=== PATIENT | male | born 1955 | race Caucasian/White ===

== ENCOUNTER 2024-08-04 00:09 | Emergency (ER) | payer MEDICARE, SELFPAY ==
[2024-08-04 00:15] VITALS: BP 136/77; PULSE 94; TEMP 36.6; O2SAT 95; BMI 34.1
--- NOTE | 2024-08-04 00:26 | XR_ITS ---
The [address] [address] Patient Name: JANNETH CARLSON MRN: [id number] date: 1955 Sex: M Assigned Patient Location: ER Current Patient Location: Accession/Order Number: [id number] Exam Date: 08/04/2024 00:54 Report Date: 08/04/2024 03:53 At the request of: JUSTIN STOLL Procedure: XR cervical spine 2-3V EXAM: XR cervical spine 2-3V HISTORY: Atraumatic pain COMPARISON: None. TECHNIQUE: Frontal, lateral, swimmer's, and open-mouth odontoid views of the cervical spine were obtained. FINDINGS: The cervical spine is well-imaged from the craniocervical junction to the C5-C6 disc space on the lateral view. No acute fracture or subluxation is seen. The vertebral body heights are preserved. The vertebral elements are in anatomic alignment. The disc spaces are preserved. The prevertebral soft tissues are unremarkable. There are degenerative changes including endplate osteophytes, uncovertebral hypertrophy, and degenerative facet arthropathy. Dental amalgam is noted. The imaged lung apices are clear. There is normal alignment of C1 on C2 on the open-mouth odontoid view. XR/XR cervical spine 2-3V IMPRESSION: 1. Degenerative changes of the cervical spine with no acute osseous abnormality seen. Electronically authenticated by: Teresa MALONEY Date: 08/04/2024 03:53
--- NOTE | 2024-08-04 00:27 | ED_ITS ---
HPI HPI - Neck Pain/Injury General Chief Complaint: Neck Pain/Injury Stated Complaint: neck pain Time Seen by Provider: 08/04/24 00:24 Source: patient Mode of arrival: walk-in Limitations: no limitations History of Present Illness HPI Narrative: 69-year-old male presents for neck pain. He woke up this way 2 days ago. There was not any trauma. It hurts more if he turns his head. No weakness or numbness in his arms or hands and no headache. He has never had neck issues previously. Related Data Home Medications ?Medication ?Instructions ?Recorded ?Confirmed levothyroxine 137 mcg tablet mcg 08/04/24 omeprazole 20 mg capsule,delayed mg 08/04/24 release Previous Rx's ?Medication ?Instructions ?Recorded methocarbamol 500 mg tablet 500 mg PO Q8H PRN pain #20 tabs 08/04/24 Allergies Allergy/AdvReac Type Severity Reaction Status Date / Time No Known Drug Allergies Allergy Verified 08/04/24 00:23 Opioid HPI Opioid Management Most Recent Opioid Data: Last DEC Pain Assessment 08/04/24 00:49 Review of Systems ROS Narrative A ten point review of systems is negative except as noted above. PFSH PFSH Social History Little interest or pleasure in doing things: not at all Feeling down, depressed, or hopeless: not at all Exam Narrative Exam Narrative: Nurses note and vital signs reviewed and patient is not hypoxic. General: The patient appears well and in no apparent distress. Patient is resting comfortably on cart. Skin: Warm, dry, no pallor noted. There is no rash noted. Head: Normocephalic, atraumatic; neck has no bruise or rash or swelling or masses. No palpable tenderness. Eye: Normal conjunctiva, no drainage Ears, Nose, Mouth, and Throat: oral mucosa is moist. Nares patent. Cardiovascular: Regular Rate and Rhythm Respiratory: Patient is in no distress, no accessory muscle use, lungs are clear to auscultation, no wheezing, rales or rhonchi Back: non-tender GI: Normal bowel sounds, no tenderness to palpation, no masses appreciated. No rebound, guarding, or rigidity noted. Musculoskeletal: The patient has no evidence of calf tenderness, no pitting edema, symmetrical pulses noted bilaterally Neurological: A&O, normal speech, upper and lower extremity strength intact and symmetric. Psychiatric: Cooperative Constitutional Vital Signs, click to edit/add: Last Vital Signs Temp 97.9 F 08/04/24 00:15 Pulse 94 H 08/04/24 00:15 Resp 18 08/04/24 00:15 BP 136/77 08/04/24 00:15 Pulse Ox 95 08/04/24 00:15 O2 Del Method Room Air 08/04/24 00:15 Course Vital Signs Vital signs: Vital Signs Temperature 97.9 F 08/04/24 00:15 Pulse Rate 94 H 08/04/24 00:15 Respiratory Rate 18 08/04/24 00:15 Blood Pressure 136/77 08/04/24 00:15 Pulse Oximetry 95 08/04/24 00:15 Oxygen Delivery Method Room Air 08/04/24 00:15 Temperature 97.9 F 08/04/24 00:15 Pulse Rate 94 H 08/04/24 00:15 Respiratory Rate 18 08/04/24 00:15 Blood Pressure 136/77 08/04/24 00:15 Pulse Oximetry 95 08/04/24 00:15 Oxygen Delivery Method Room Air 08/04/24 00:15 MDM - Neck Pain/Injury MDM Narrative Medical decision making narrative: The x-rays on my interpretation showed no acute findings. He seems to be feeling improved after being given IM Toradol and Norflex and is discharged home on methocarbamol. Findings are discussed with the patient. Differential Diagnosis Differential diagnosis: Likely disc disorder of cervical region, fracture of cervical spine without lesion of spinal cord, cervical radiculopathy and other (Torticollis) Imaging Data C-spine x-ray: My impression: No acute findings Discharge Plan Discharge Chief Complaint: Neck Pain/Injury Clinical Impression: Torticollis Patient Disposition: Home, Self-Care Time of Disposition Decision: 03:21 Condition: Good Mode of Transportation: Private Vehicle Prescriptions / Home Meds: New methocarbamol 500 mg tablet 500 mg PO Q8H PRN (Reason: pain) Qty: 20 0RF No Action levothyroxine 137 mcg tablet omeprazole 20 mg capsule,delayed release(DR/EC) Print Language: Malawian Instructions: Neck Pain (ED) Referrals: Blaze Capone MD [Primary Care Provider] - 1 week
[2024-08-04] MEDS: KETOROLAC TROMETHAMINE 60 MG/2 ML VIAL IM (00:49)
[2024-08-04] MEDS: ORPHENADRINE 60 MG/ 2 ML VIAL IM (00:49)
== END 2024-08-04 03:24 | disposition home or self-care (01) ==
PROVIDERS: Emergency Provider Emergency Medicine; PCP Family Medicine
DX: M43.6 Torticollis (principal)
CPT/HCPCS: 72040; 96372; 99284; J1885; J2360

== ENCOUNTER 2024-10-16 08:59 | Outpatient (OUT) | payer MEDICARE, SELFPAY ==
--- OUTSIDE RECORDS SUMMARY | 2024-10-16 09:19 | XMS_ITS | CCD ---
Author Organization [facility] Care Team Providers Care Helmet Hat Puncher Name Role Phone DR WILLIE HOBBS Attending Unavailable FABY, DR WILLIE Del Rosario Consulting Unavailable DR WILLIE HOBBS Primary Care Unavailable FABY, DR WILLIE Del Rosario Admitting Unavailable Willie Hobbs MD Primary Care Provider Medications Current Medications Medication Drug Class(es) Dates Sig (Normalized) Sig (Original) levothyroxine sodium 0.137 mg oral tablet (3 sources) l-Thyroxine Start: 10-06-2024 take 1 tablet by mouth once daily levothyroxine (Synthroid, Levoxyl) 137 MCG tablet Indications: Hypothyroidism, unspecified type (CMS/HCC) Take 1 tablet by mouth once daily 90 tablet 10/06/2024 Active omeprazole 20 mg delayed release oral capsule (3 sources) Proton Pump Inhibitor Start: 08-21-2024 take 1 capsule by mouth once daily omeprazole (PriLOSEC) [address] capsule Indications: Gastroesophageal reflux disease, unspecified whether esophagitis present Take 1 capsule by mouth once daily 90 capsule 08/21/2024 Active Problems Problem Classification Problem Date Documented Date Episodic/Chronic Esophageal disorders (2 sources) Gastroesophageal reflux disease without esophagitis; Translations: [Gastro-esophageal reflux disease without esophagitis] Onset: 10-13-2024 10-13-2024 Chronic Other aftercare (4 sources) Other intermediate (current) drug therapy; Translations: [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] Onset: 05-19-2021 Episodic Other aftercare (4 sources) Long-term current use of drug therapy; Translations: [Other supervisor intermediates (current) drug therapy] Onset: 10-13-2024 10-13-2024 Episodic Other nutritional; endocrine; and metabolic disorders (4 sources) Obesity caused by energy imbalance; Translations: [Class 2 obesity due to excess calories without serious comorbidity with body mass index (BMI) of 35.0 to 35.9 in adult] Onset: 10-13-2024 10-13-2024 Chronic Other screening for suspected conditions (not mental disorders or infectious disease) (9 sources) Encounter for screening for malignant neoplasm of prostate; Translations: [Patient encounter status] Onset: 05-23-2021 10-13-2024 Episodic Spondylosis; intervertebral disc disorders; other back problems (4 sources) Degeneration of cervical intervertebral disc; Translations: [Other cervical disc degeneration, unspecified cervical region] Onset: 10-13-2024 10-13-2024 Chronic Thyroid disorders (5 sources) Hypothyroidism, unspecified; Translations: [Hypothyroidism] Onset: 05-23-2021 10-13-2024 Chronic Results Test Name Value Interpretation Reference Range Facil ity CBC AUTO DIFFon 05-19-2021 BASO # 0.0 103/ul Normal 0.0-0.1 [facility] Comment on above: Performed By: #### C BC #### [facility] [address] [place], [place] [id number] Stef Isaura Basophils/100 WBC (Bld) 0.3 % Normal 0.2-2.0 [facility] Comment on above: Performed By: #### C BC #### [facility] [address] [place], [place] [id number] Stefjesus Delarosa EO # 0.1 103/ul Normal 0.0-0.7 [facility] Comment on above: Performed By: #### C BC #### [facility] [address] [place], [place] [id number] Stef Delarosa Eosinophils/100 WBC (Bld) 1.4 % Normal 0.9-7.0 [facility] Comment on above: Performed By: #### C BC #### [facility] [address] [place], [place] [id number] Stef Delarosa Erythrocyte distribution width (RBC) [Ratio] 13.4 % Normal 11.0-15.0 [facility] Comment on above: Performed By: #### C BC #### [facility] [address] [place], [place] [id number] Stef Isaura Hematocrit (Bld) [Volume fraction] 55.1 % Critically high 42.0-54.0 [facility] Comment on above: Performed By: #### C BC #### [facility] [address] [place], [place] [id number] Stef Isaura Hemoglobin (Bld) [Mass/Vol] 18.0 g/dL Normal 14.0-18.0 [facility] Comment on above: Performed By: #### C BC #### [facility] [address] [place], [place] [address] Stef Isaura IG # 0.02 10e3/ul Normal 0.00-0.03 [facility] Comment on above: Performed By: #### C BC #### [facility] [address] [place] [address] Stef Isaura IG % 0.3 % Normal 0.0-0.5 [facility] Comment on above: Performed By: #### C BC #### [facility] [address] [place] [address] Stef Isaura LYMPH # 1.5 103/ul Normal 1.2-3.8 [facility] Comment on above: Performed By: #### C BC #### [facility] [address] [place], [place] [id number] Stef Delarosa Lymphocytes/100 WBC (Bld) 22.8 % Normal 20.5-60.0 [facility] Comment on above: Performed By: #### C BC #### [facility] [address] [place], [place] [address] Stef Delarosa MANUAL DIFF REQ NO Normal [facility] Comment on above: Performed By: #### C BC #### [facility] [address] [place], [place] [address] Stefjesus Turneren MCH (RBC) [Entitic mass] 31.8 pg Normal 25.9-34.0 [facility] Comment on above: Performed By: #### C BC #### [facility] [address] [place], [place] [address] Stefjesus Delarosa MCHC (RBC) [Mass/Vol] 32.7 g/dL Normal 29.9-35.2 [facility] Comment on above: Performed By: #### C BC #### [facility] [address] [id number] Stef Isaura MCV (RBC) [Entitic vol] 97.3 fL Critically high 80.0-94.0 [facility] Comment on above: Performed By: #### C BC #### [facility] [address] [id number] Stefjesus Turneren MONO # 0.7 103/ul Normal 0.3-0.8 [facility] Comment on above: Performed By: #### C BC #### [facility] [address] [id number] Stef Isaura Monocytes/100 WBC (Bld) 10.0 % Normal 1.7-12.0 [facility] Comment on above: Performed By: #### C BC #### [facility] [address] [place] [address] Stef Isaura NEUT # 4.3 103/ul Normal 1.4-6.5 [facility] Comment on above: Performed By: #### C BC #### [facility] [address] [place], [place] [address] Stef Isaura Neutrophils/100 WBC (Bld) 65.2 % Normal 43.0-75.0 [facility] Comment on above: Performed By: #### C BC #### [facility] [address] [place], [place] [address] Stefjesus Delarosa Platelet mean volume (Bld) [Entitic vol] 12.2 fL Normal 9.5-13.5 [facility] Comment on above: Performed By: #### C BC #### [facility] [address] [place] [address] Stef Isaura PLT 175 103/ul Normal 150-450 [facility] Comment on above: Performed By: #### C BC #### [facility] [address] [place], [place] [address] Stef Isaura RBC 5.66 106/ul Normal 4.70-6.10 [facility] Comment on above: Performed By: #### C BC #### [facility] [address] [place] [address] Stef Isaura WBC 6.6 103/ul Normal 4.0-11.0 [facility] Comment on above: Performed By: #### C BC #### [facility] [address] [place] [address] Stef Isaura FREE T3on 05-19-2021 FREE T3 2.69 pg/mlL Critically low 2.77-5.27 [facility] Comment on above: Performed By: #### F T3, BMP, AST, ALT, TSH #### [facility] [address] [place] [address] Stef Isaura FREE T4on 05-19-2021 Free T4 [Mass/Vol] 0.99 ng/dL Normal 0.78-2.19 [facility] Comment on above: Performed By: #### F T4, PSASC #### [facility] [address] [place] [address] Stef Isaura PROF CHEM 8 (BAS METB)on Anion gap [Moles/Vol] 13.1 mmol/L Normal [facility] Comment on above: Performed By: #### F T3, BMP, AST, ALT, TSH #### [facility] [address] [place] [address] Stef Isaura Calcium [Mass/Vol] 8.9 mg/dL Normal 8.4-10.2 [facility] Comment on above: Performed By: #### F T3, BMP, AST, ALT, TSH #### [facility] [address] [place] [address] Stef Isaura Chloride [Moles/Vol] 107 mmol/L Normal 98-107 [facility] Comment on above: Performed By: #### F T3, BMP, AST, ALT, TSH #### [facility] [address] [place] [address] Stef Isaura CO2 [Moles/Vol] 27.6 mmol/L Normal 22.0-30.0 [facility] Comment on above: Performed By: #### F T3, BMP, AST, ALT, TSH #### [facility] [address] [place] [address] Stef Isaura Creatinine [Mass/Vol] 1.36 mg/dL Critically high 0.66-1.25 [facility] Comment on above: Performed By: #### F T3, BMP, AST, ALT, TSH #### [facility] [address] [address] Stef Isaura EGFR-AF CITIZEN OF [place] >60 Normal >=60 [facility] Comment on above: Performed By: #### F T3, BMP, AST, ALT, TSH #### [facility] [address] [address] Stef Isaura EGFR-NON AF CITIZEN OF [place] 52 mL/min/1.73m2 Critically low >=60 [facility] Comment on above: Performed By: #### F T3, BMP, AST, ALT, TSH #### [facility] [address] [place] [address] Stef Isaura Glucose [Mass/Vol] 91 mg/dL Normal 74-106 [facility] Comment on above: Performed By: #### F T3, BMP, AST, ALT, TSH #### [facility] [address] [place] [address] Stef Isaura Potassium [Moles/Vol] 4.7 mmol/L Normal 3.4-5.0 [facility] Comment on above: Performed By: #### F T3, BMP, AST, ALT, TSH #### [facility] [address] [place] [address] Stef Isaura Sodium [Moles/Vol] 143 mmol/L Normal 137-145 [facility] Comment on above: Performed By: #### F T3, BMP, AST, ALT, TSH #### [facility] [address] [place] [address] Stef Isaura Urea nitrogen [Mass/Vol] 21.0 mg/dL Critically high 9.0-20.0 [facility] Comment on above: Performed By: #### F T3, BMP, AST, ALT, TSH #### [facility] [address] [place] [address] Stef Isaura Urea nitrogen/Creatinine [Mass ratio] 15.4 mg/mg Normal [facility] Comment on above: Performed By: #### F T3, BMP, AST, ALT, TSH #### [facility] [address] [address] Stef Delarosa SGOTon 05-19-2021 AST [Catalytic activity/Vol] 30 U/L Normal 17-59 [facility] Comment on above: Performed By: #### F T3, BMP, AST, ALT, TSH #### [facility] [address] [place] [address] Stef Delarosa SGPTon 05-19-2021 ALT [Catalytic activity/Vol] 39 U/L Normal 21-72 [facility] Comment on above: Performed By: #### F T3, BMP, AST, ALT, TSH #### [facility] [address] [place] [address] Stef Delarosa TSHon 05-19-2021 TSH 2.229 uIU/mL Normal 0.470-4.680 [facility] Comment on above: Performed By: #### F T3, BMP, AST, ALT, TSH #### [facility] [address] [place] [address] Stef Delarosa TSH RANGE SEE BELOW Normal [facility] Comment on above: Result Comment: <0.3 4 UIU/ml HYPERTHYROID 0.34-5.60 UIU/ml EUTHYROID >5.60 UIU/ml HYPOTHYROID Performed By: #### F T3, BMP, AST, ALT, TSH #### [facility] [address] [place] [address] Stef Delarosa Vital Signs Date Time Vital Sign Value Performing Clinician Omi pozo 10-13-2024 11:050 Body height 193 cm Willie Hobbs MD Work Phone: [facility] 10-13-2024 11:-050 Body mass index (BMI) [Ratio] 35.06 kg/m2 Willie Hobbs MD Work Phone: [facility] 10-13-2024 11:050 Body weight 130.64 kg Willie Hobbs MD Work Phone: [facility] 10-13-2024 11:26-0500 Diastolic blood pressure 58 mm[Hg] Willie Hobbs MD Work Phone: [facility] 10-13-2024 11:26-0500 Heart rate 72 /min Willie Hobbs MD Work Phone: [facility] 10-13-2024 11:26-0500 Respiratory rate 18 /min Willie Hobbs MD Work Phone: [facility] 10-13-2024 11:26-0500 SaO2% (BldA) [Mass fraction] 97 % Willie Hobbs MD Work Phone: [facility] 10-13-2024 11:26-0500 Systolic blood pressure 110 mm[Hg] Willie Hobbs MD Work Phone: [facility] Healthcare Encounters Encounter Date Encounter Type Care Provider Facility Start: 10-13-2024 End: 10-13-2024 Bamboo flowsheet Willie Hobbs MD Work Phone: [facility] Start: 10-13-2024 End: 10-13-2024 Bamboo flowsheet Willie Hobbs MD Work Phone: [facility] Start: 10-13-2024 End: 10-13-2024 Office outpatient visit 15 minutes Willie Hobbs MD Work Phone: [facility] Comment on above: DDD (degenerative di sc disease), cervical (Primary Dx); Adult hypothyroidism (CMS/HCC); Lipid screening; Screening PSA (prostate specific antigen); Encounter for long-term current use of medication; Class 2 obesity due to excess calories without serious comorbidity with body mass index (BMI) of 35.0 to 35.9 in adult Start: 05-19-2021 End: 05-20-[address] WILLIE HOBBS Facility:[facility] Procedures Date Procedure Procedure Detail Performing Clinician Start: 05-19-[address] WILLIE DURAN Comment on above: Performed By: #### F T4, PSASC #### [facility] [address] [place] [address] Stef Delarosa Plan of Treatment Date Care Activity Detail Author Start: 04-13-2025 End: 04-13-2025 Patient encounter procedure 04/13/2025 9:45 AM EDT Office Visit [facility] [address] [place] [address] Willie Hobbs MD [address] [place] [address] [facility] Start: 04-11-2025 Screening for malign ant neoplasm of colon Colorectal Cancer Screening [facility] Comment on above: Postponed from 02/20 (Patient Refused) Start: 10-13-2024 End: 10-13-2025 Basic metabolic 1998 panel - Serum or Plasma Basic metabolic panel Lab Routine Encounter for long-term current use of medication Expected: 10/13/2024 (Approximate), Expires: 10/13/2025 [facility] Work Phone: Comment on above: Expected: 10/13/2024 (Approximate), Expires: 10/13/2025 Start: 10-13-2024 End: 10-13-2025 CBC W Auto Differential panel - Blood CBC and differential Lab Routine Encounter for long-term current use of medication Expected: 10/13/2024 (Approximate), Expires: 10/13/2025 [facility] Comment on above: Expected: 10/13/2024 (Approximate), Expires: 10/13/2025 Start: 10-13-2024 End: 10-13-2025 Hepatic function 2000 panel - Serum or Plasma Hepatic function panel Lab Routine Encounter for long-term current use of medication Expected: 10/13/2024 (Approximate), Expires: 10/13/2025 [facility] Comment on above: Expected: 10/13/2024 (Approximate), Expires: 10/13/2025 Start: 10-13-2024 End: 10-13-2025 Lipid 1996 panel - Serum or Plasma Lipid panel Lab Routine Lipid screening Expected: 10/13/2024 (Approximate), Expires: 10/13/2025 [facility] Comment on above: Expected: 10/13/2024 (Approximate), Expires: 10/13/2025 Start: 10-13-2024 End: 10-13-2025 Prostate specific Ag [Mass/volume] in Serum or Plasma PSA Lab Routine Screening PSA (prostate specific antigen) Expected: 10/13/2024 (Approximate), Expires: 10/13/2025 [facility] Comment on above: Expected: 10/13/2024 (Approximate), Expires: 10/13/2025 Start: 10-13-2024 End: 10-13-2025 Thyrotropin [Units/volume] in Serum or Plasma TSH Lab Routine Class 2 obesity due to excess calories without serious comorbidity with body mass index (BMI) of 35.0 to 35.9 in adult Expected: 10/13/2024 (Approximate), Expires: 10/13/2025 [facility] Comment on above: Expected: 10/13/2024 (Approximate), Expires: 10/13/2025 Start: 10-13-2024 End: 10-13-2024 Patient encounter procedure 10/13/2024 10:45 AM EST Office Visit [facility] [address] [place] [address] Willie Hobbs MD [address] [place] [id number] [facility] Comment on above: Arrived Start: 06-25-2024 Influenza vaccination Influenza Vacc ine (#1) [facility] Start: 2019 Pneumococcal Vaccine : 65+ Years (1 of 1 - PCV) Pneumococcal Vaccine: 65+ Years (1 of 1 - PCV) [facility] Start: 1955 Medicare Annual Wellness (AWV) Medicare Annual Wellness (AWV) [facility] Start: 1955 Screening for malign ant neoplasm of colon [facility] Payers Date Payer Category Payer Medicare (Managed Care) YOVANA MALONE [id number] 1960 Unknown [id number] 1955 Unknown [id number] Social History Date Type Detail Facility Start: 10-13-2024 Tobacco smoking status NHIS Never sm oked tobacco [facility] Start: 10-13-2024 Tobacco use and exposure Smoke less tobacco non-user [facility] Start: 10-13-2024 History of Social function [facility] Start: 10-13-2024 [id number] Health Literacy [facility] How often do you nee d to have someone help you when you read instructions, pamphlets, or other written material from your doctor or pharmacy [SILS] Never [facility] Do you belong to any clubs or organizations such as alevism groups, unions, fraternal or athletic groups, or school groups? Yes [facility] Are you now , , , , never or living with a partner? [facility] How often to you hav e a drink containing alcohol? Never [facility] Do you feel stress - tense, restless, nervous, or anxious, or unable to sleep at night because your mind is troubled all the time - these days [OSQ] Only a little [facility] (I/We) worried wheth er (my/our) food would run out before (I/we) got money to buy more. Never true [facility] In the past 12 month s, was there a time when you were not able to pay the mortgage or rent on time? 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 Associated Problem(s): Adult hypothyroidism (CMS/HCC) No signs of low thyroid and check labs. Associated Problem(s): DDD (degenerative disc disease), cervical Recent flares and use OTC PRN. If worsens can try PT. Images from the original note were not included. Subjective Patient ID: Omar Diez is a 69 y.o. male who presents for Follow-up (Had neck pain flair, but doing better. ). Follow up neck pain. Last seen August 2022. C/o pain in neck and occasional flares. To ER 08/04 and x-ray showed DDD. 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 Again flare end of August but improved today. Takes motrin 800 PRN and helps. Taking synthroid daily and no signs of low thyroid. Due for labs. Review of Systems Constitutional: Negative for fatigue. Respiratory: Negative for cough, shortness of breath and wheezing. Cardiovascular: Negative for chest pain and palpitations. Gastrointestinal: Negative for abdominal pain, diarrhea, nausea and vomiting. Genitourinary: Negative for dysuria. Objective Physical Exam Constitutional: General: He is not in acute distress. Appearance: Normal appearance. HENT: Head: Normocephalic. Right Ear: Tympanic membrane and ear canal normal. Left Ear: Tympanic membrane and ear canal normal. Eyes: Extraocular Movements: Extraocular movements intact. Pupils: Pupils are equal, round, and reactive to light. Cardiovascular: Rate and Rhythm: Normal rate and regular rhythm. Heart sounds: No murmur heard. No friction rub. No gallop. Pulmonary: Breath sounds: Normal breath sounds. No wheezing, rhonchi or rales. Abdominal: General: Bowel sounds are normal. There is no distension. Palpations: Abdomen is soft. Tenderness: There is no abdominal tenderness. There is no guarding or rebound. Musculoskeletal: Left lower leg: No edema. Neurological: Mental Status: He is alert. Assessment/Plan Problem List Items Addressed This Visit Adult hypothyroidism (CMS/HCC) No signs of low thyroid and check labs. DDD (degenerative disc disease), cervical - Primary Recent flares and use OTC PRN. If worsens can try PT. Class 2 obesity due to excess calories without serious comorbidity with body mass index (BMI) of 35.0 to 35.9 in adult Weight loss indicated. Relevant Orders TSH Encounter for long-term current use of medication Relevant Orders Basic metabolic panel CBC and differential Hepatic function panel Screening PSA (prostate specific antigen) Relevant Orders PSA Lipid screening Relevant Orders Lipid panel documented in this encounter [facility] Evaluation note Note Date & Type Note Facility Evaluation note Diagnosis DDD (degenerative disc disease), cervical- Primary Degeneration of cervical intervertebral disc Adult hypothyroidism (CMS/HCC) Unspecified hypothyroidism Lipid screening Screening for lipoid disorders Screening PSA (prostate specific antigen) Special screening for malignant neoplasm of prostate Encounter for long-term current use of medication Class 2 obesity due to excess calories without serious comorbidity with body mass index (BMI) of 35.0 to 35.9 in adult documented in this encounter [facility] Summary Purpose Family History No Family History Records Found Advance Directives No Advanced Directives Records Found Additional Source Comments (unrecognized sect ion and content) No Status Records Found INFORMATION SOURCE (unrecogn ized section and content) DATE CREATED AUTHOR 05/25/2021 [facility] Reason for Visit (unrecogniz ed section and content) Reason Comments Follow-up Had neck pain flair, but doing better. Care Teams (unrecognized sec tion and content) Helmet Hat Puncher Relationship Specialty Start Date End Date Willie Hobbs MD [address] [place] [address] PCP - General Family Medicine 09/20/24 Helmet Hat Puncher Relationship Specialty Start Date End Date Willie Hobbs MD [address] [place] [address] PCP - General Family Medicine 09/20/24 FOR RECORDS PERTAINING TO PATIENTS WHO ARE OR HAVE BEEN ENROLLED IN A CHEMICAL DEPENDENCY/SUBSTANCEABUSE PROGRAM, SOME INFORMATION MAY BE OMITTED. This clinical summary was aggregated from multiple sources. Caution should be exercised in using it in the provision of clinical care. This summary normalizes information from multiple sources, and as a consequence, information in this document may materially change the coding, format and clinical context of patient data. In addition, data may be omitted in some cases. CLINICAL DECISIONS SHOULD BE BASED ON THE PRIMARY CLINICAL RECORDS. [facility]. provides no warranty or guarantee of the accuracy or completeness of information in this document.
[2024-10-16 09:35] LABS: Basophils Percent Auto 0.3 % (0.2-2.0); Eosinophils Absolute Auto 0.1 10^3/uL (0.0-0.7); Eosinophils Percent Auto 1.5 % (0.9-7.0); Hematocrit 54.9 % (42.0-54.0); Hemoglobin 17.8 g/dL (14.0-18.0); Immature Granulocytes Abs Auto 0.02 10^3/uL (0.00-0.03); Immature Granulocytes Pct Auto 0.3 % (0.0-0.5); Lymphocytes Absolute Auto 1.4 10^3/uL (1.2-3.8); Lymphocytes Percent Auto 18.9 % (20.5-60.0); Mean Corpuscular HGB Conc 32.4 g/dL (29.9-35.2); Mean Corpuscular Hemoglobin 31.3 pg (25.9-34.0); Mean Corpuscular Volume 96.7 fL (80.0-94.0); Monocytes Absolute Auto 0.6 10^3/uL (0.3-0.8); Monocytes Percent Auto 8.6 % (1.7-12.0); Neutrophils Absolute Auto 5.2 10^3/uL (1.4-6.5); Neutrophils Percent Auto 70.4 % (43.0-75.0); Platelet Count 186 10^3/uL (150-450); Red Blood Count 5.68 10^6/uL (4.70-6.10); Red Cell Distribution Width 12.9 % (11.0-15.0); White Blood Count 7.4 10^3/uL (4.0-11.0)
[2024-10-16 10:35] LABS: Alanine Aminotransferase 28 U/L (16-63); Albumin Level 3.4 g/dL (3.4-5.0); Alkaline Phosphatase 92 U/L (46-116); Anion Gap 9.7; Aspartate Amino Transferase 19 U/L (15-37); BUN Creatinine Ratio 14.5; Bilirubin Direct 0.1 mg/dL (0.0-0.2); Bilirubin Total 0.5 mg/dL (0.2-1.0); Calcium 9.2 mg/dL (8.5-10.1); Carbon Dioxide 28.7 mmol/L (21.0-32.0); Chloride 106 mmol/L (98-107); Chol HDL Ratio 4.1; Cholesterol 140 mg/dL (<=200); Estimated GFR (African America >60 (>=60 mL/min/1.73m^2); Estimated GFR (Non-African Ame 54 (>=60 mL/min/1.73m^2); Globulin 3.5 g/dL; Glucose 113 mg/dL (74-106); HDL Cholesterol 34 mg/dL (40-60); Potassium 4.4 mmol/L (3.5-5.1); Sodium 140 mmol/L (136-145); Thyroid Stimulating Hormone 3.269 uIU/mL (0.358-3.740); Total Protein 6.9 g/dL (6.4-8.2); Triglycerides 120 mg/dL (<=150)
[2024-10-16 10:48] LABS: Prostate Specific Antigen Scrn 2.12 ng/mL (<=4.00)
== END 2024-10-16 09:00 | disposition home or self-care (01) ==
LOC: LAB 09:03
PROVIDERS: PCP Family Medicine; Visit Provider Family Medicine
DX: Z79.899 Other long term (current) drug therapy (principal); Z13.220 Encounter for screening for lipoid disorders; Z12.5 Encounter for screening for malignant neoplasm of prostate; E66.812 Obesity, class 2; E66.09 Other obesity due to excess calories; Z68.35 Body mass index [BMI] 35.0-35.9, adult
CPT/HCPCS: 36415; 80048; 80061; 80076; 84443; 85025; G0103

== ENCOUNTER 2025-04-13 10:32 | Outpatient (OUT) | payer MEDICARE, SELFPAY ==
--- OUTSIDE RECORDS SUMMARY | 2025-04-13 10:51 | XMS_ITS | CCD ---
Author Organization [facility] Care Team Providers Care [place] Name Role Phone DR WILLIE HOBBS Attending Unavailable DR WILLIE HOBBS Consulting DR WILLIE Gardner Primary Care Unavailable FABY, DR WILLIE Del Rosario Admitting Unavailable Willie Hobbs MD Primary Care Provider [phone] WILLIE HOBBS Attending Unavailable WILLIE HOBBS Attending Unavailable Willie Hobbs MD Unavailable Medications Current Medications Medication Drug Class(es) Dates Sig (Normalized) Sig (Original) benzonatate 200 mg oral capsule (5 sources) Non-narcotic Antitussive Start: 12-06-2024 End: 04-13-2025 take 1 capsule by mouth three times daily as needed for cough benzonatate (Tessalon) 200 MG capsule Indications: Acute bronchitis due to other specified organisms Take 1 capsule (200 mg) by mouth 3 (three) times a day as needed for cough Do not crush or chew. 30 capsule 1 12/06/2024 04/13/2025 Discontinued cefdinir 300 mg oral capsule (3 sources) Cephalosporin Antibacterial Start: 12-01-2024 End: 12-11-2024 take 1 capsule by mouth in the morning cefdinir (Omnicef) 300 MG capsule Indications: Upper respiratory tract infection, unspecified type Take 1 capsule (300 mg) by mouth in the morning and 1 capsule (300 mg) before bedtime. Do all this for 10 days. 20 capsule 12/01/2024 12/06/2024 Discontinued levoFLOXacin 750 mg oral tablet (2 sources) Quinolone Antimicrobial Start: 12-06-2024 End: 12-13-2024 take 1 tablet by mouth once daily levoFLOXacin (Levaquin) 750 MG tablet Indications: Acute bronchitis due to other specified organisms Take 1 tablet (750 mg) by mouth Daily for 7 days 7 tablet 12/06/2024 12/13/2024 Active levothyroxine sodium 0.137 mg oral tablet (10 sources) l-Thyroxine Start: 04-09-2025 take 1 tablet by mouth once daily levothyroxine (Synthroid, Levoxyl) 137 MCG tablet Indications: Hypothyroidism, unspecified type Take 1 tablet by mouth once daily 90 tablet 04/09/2025 Active Start: 10-06-2024 take 1 tablet by mk once daily levothyroxine (Synthroid, Levoxyl) 137 MCG tablet Indications: Hypothyroidism, unspecified type (CMS/HCC) Take 1 tablet by mouth once daily 90 tablet 10/06/2024 Active omeprazole 20 mg delayed release oral capsule (10 sources) Proton Pump Inhibitor Start: 11-27-2024 take 1 capsule by mouth once daily omeprazole (PriLOSEC) [address] capsule Indications: Gastroesophageal reflux disease, unspecified whether esophagitis present Take 1 capsule by mouth once daily 90 capsule 11/27/2024 Active Start: 08-21-2024 take 1 capsule by mo [facility] once daily omeprazole (PriLOSEC) [address] capsule Indications: Gastroesophageal reflux disease, unspecified whether esophagitis present Take 1 capsule by mouth once daily 90 capsule 08/21/2024 Active predniSONE 50 mg oral tablet (2 sources) Start: 12-06-2024 End: 12-12-2024 take 1 tablet by mouth once daily predniSONE (Deltasone) 50 MG tablet Indications: Acute bronchitis due to other specified organisms Take 1 tablet (50 mg) by mouth Daily for 6 days 6 tablet 12/06/2024 12/12/2024 Active Problems Active Problems Problem Classification Problem Date Documented Date Episodic/Chronic Diabetes mellitus without complication (10 sources) Prediabetes; Translations: [Prediabetes] Onset: 10-16-2024 10-16-2024 Episodic Esophageal disorders (9 sources) Gastroesophageal reflux disease without esophagitis; Translations: [Gastro-esophageal reflux disease without esophagitis] Onset: 10-13-2024 10-13-2024 Chronic Other aftercare (4 sources) Other [employer] (current) drug therapy; Translations: [OTH CORRECTION CURRENT DRUG THERAPY] Onset: 05-19-2021 Episodic Other aftercare (13 sources) Long-term current use of drug therapy; Translations: [Other [employer] (current) drug therapy] Onset: 10-13-2024 10-13-2024 Episodic Other nutritional; endocrine; and metabolic disorders (6 sources) Obesity caused by energy imbalance; Translations: [Class 2 obesity due to excess calories without serious comorbidity with body mass index (BMI) of 35.0 to 35.9 in adult] Onset: 10-13-2024 10-13-2024 Chronic Other nutritional; endocrine; and metabolic disorders (9 sources) Severe obesity; Translations: [Class 2 severe obesity due to excess calories with serious comorbidity and body mass index (BMI) of 35.0 to 35.9 in adult ([facility])] Onset: 10-13-2024 12-06-2024 Chronic Spondylosis; intervertebral disc disorders; other back problems (11 sources) Degeneration of cervical intervertebral disc; Translations: [Other cervical disc degeneration, unspecified cervical region] Onset: 10-13-2024 10-13-2024 Chronic Thyroid disorders (14 sources) Hypothyroidism, unspecified; Translations: [Hypothyroidism] Onset: 05-23-2021 10-13-2024 Chronic Past or Other Problems Problem Classification Problem Date Documented Da te Episodic/Chronic Acute bronchitis (7 sources) Acute infective bronchitis; Translations: [Acute bronchitis due to other specified organisms] Onset: 12-06-2024 Resolved: 04-13-2025 12-06-2024 Episodic Mood disorders (2 sources) Mood disorders Onset: 04-13-2025 04-13-2025 Other screening for suspected conditions (not mental disorders or infectious disease) (20 sources) Encounter for screening for malignant neoplasm of prostate; Translations: [Patient encounter status] Onset: 05-23-2021 10-13-2024 Episodic Results Test Name Value Interpretation Reference Range Facil ity ALL CBC WITH AUTO DIFFon BASOPHILS ABSOLUTE AUTO 0 [facility] Basophils/100 WBC (Bld) 0.3 % 0.2 - 2.0 % [facility] Eosinophils/100 WBC (Bld) 1.5 % 0.9 - 7.0 % [facility] Erythrocyte distribution width (RBC) [Ratio] 12.9 % 11.0 - 15.0 % [facility] Hematocrit (Bld) [Volume fraction] 54.9 % High 42.0 - 54.0 % [facility] (Bld[facility] [Mass/Vol] 17.8 g/dL 14.0 - 18.0 g/dL [facility] IMMATURE GRANULOCYTES ABS AUTO 0.02 [facility] Immature granulocytes/100 WBC (Bld) 0.3 % 0.0 - 0.5 % [facility] Interpretation and review of laboratory results Abnormal [facility] LYMPHOCYTES ABSOLUTE AUTO 1.4 [facility] Lymphocytes/100 WBC (Bld) 18.9 % Low 20.5 - 60.0 % [facility] MCH (RBC) [Entitic mass] 31.3 pg 25.9 - 34.0 pg [facility] MCHC (RBC) [Mass/Vol] 32.4 g/dL 29.9 - 35.2 g/dL [facility] MCV (RBC) [Entitic vol] 96.7 fL High 80.0 - 94.0 fL [facility] MONOCYTES ABSOLUTE AUTO 0.6 [facility] Monocytes/100 WBC (Bld) 8.6 % 1.7 - 12.0 % [facility] NEUTROPHILS ABSOLUTE AUTO 5.2 [facility] Neutrophils/100 WBC (Bld) 70.4 % 43.0 - 75.0 % [facility] Platelet mean volume (Bld) [Entitic vol] 11 fL 9.5 - 13.[address] [facility] are [facility]H EO # 0.1 [facility] e [facility] PLT 186 [facility] RBC 5.68 [facility] WBC 7.4 [facility] CBC AUTO DIFFon 05-19-2021 BASO # 0.0 103/ul Normal 0.0-0.[address] [facility] Comment on above: Performed By: #### C BC #### [facility] [address] [place] [address] Stef Isaura Basophils/100 WBC (Bld) 0.3 % Normal 0.2-2.[address] [facility] Comment on above: Performed By: #### C BC #### [facility] [address] [id number] Stef Isaura EO # 0.1 103/ul Normal 0.0-0.[address] [facility] Comment on above: Performed By: #### C BC #### [facility] [address] [id number] Stefjesus Turneren Eosinophils/100 WBC (Bld) 1.4 % Normal 0.9-7.0 [facility] Comment on above: Performed By: #### C BC #### [facility] [address] [place] [address] Stefjesus Delarosa Erythrocyte distribution width (RBC) [Ratio] 13.4 % Normal 11.0-15.0 [facility] Comment on above: Performed By: #### C BC #### [facility] [address] [place] [address] Stef Isaura Hematocrit (Bld) [Volume fraction] 55.1 % Critically high 42.0-54.0 [facility] Comment on above: Performed By: #### C BC #### [facility] [address] [place] [address] Stef Isaura Hemoglobin (Bld) [Mass/Vol] 18.0 g/dL Normal 14.0-18.0 [facility] Comment on above: Performed By: #### C BC #### [facility] [address] [place] [address] Stef Isaura IG # 0.02 10e3/ul Normal 0.00-0.03 [facility] Comment on above: Performed By: #### C BC #### [facility] [address] [place] [address] Stef Isaura IG % 0.3 % Normal 0.0-0.[address] [facility] Comment on above: Performed By: #### C BC #### [facility] [address] [place] [address] Stef Isaura LYMPH # 1.5 103/ul Normal 1.2-3.[address] [facility] Comment on above: Performed By: #### C BC #### [facility] [address] [place] [address] Stefjesus Turneren Lymphocytes/100 WBC (Bld) 22.8 % Normal 20.5-60.0 [facility] Comment on above: Performed By: #### C BC #### [facility] [address] [place] [address] Stefjesus Turneren MANUAL DIFF REQ NO Normal [facility] Comment on above: Performed By: #### C BC #### [facility] [address] [id number] Stef Delarosa MCH (RBC) [Entitic mass] 31.8 pg Normal 25.9-34.0 [facility] Comment on above: Performed By: #### C BC #### [facility] [address] [id number] Stef Delarosa MCHC (RBC) [Mass/Vol] 32.7 g/dL Normal 29.9-35.2 [facility] Comment on above: Performed By: #### C BC #### [facility] [address] [place], [place] [id number] Stef Delarosa MCV (RBC) [Entitic vol] 97.3 fL Critically high 80.0-94.0 [facility] Comment on above: Performed By: #### C BC #### [facility] [address] [place], [place] [id number] Stef Delarosa MONO # 0.7 103/ul Normal 0.3-0.8 [facility] Comment on above: Performed By: #### C BC #### [facility] [address] [place], [place] [id number] Stef Delarosa Monocytes/100 WBC (Bld) 10.0 % Normal 1.7-12.0 [facility] Comment on above: Performed By: #### C BC #### [facility] [address] [place], [place] [id number] Stef Delarosa NEUT # 4.3 103/ul Normal 1.4-6.5 [facility] Comment on above: Performed By: #### C BC #### [facility] [address] [place], [place] [id number] Stef Delarosa Neutrophils/100 WBC (Bld) 65.2 % Normal 43.0-75.[address] [facility] Comment on above: Performed By: #### C BC #### [facility] [address] [place], [place] [id number] Stefjesus Delarosa Platelet mean volume (Bld) [Entitic vol] 12.2 fL Normal 9.5-13.[address] [facility] Comment on above: Performed By: #### C BC #### [facility] [address] [place], [place] [address] Stef Isaura PLT 175 103/ul Normal 150-[address] [facility] Comment on above: Performed By: #### C BC #### [facility] [address] [id number] Stef Isaura RBC 5.66 106/ul Normal 4.70-6.[address] [facility] Comment on above: Performed By: #### C BC #### [facility] [address] [id number] Stef Isaura WBC 6.6 103/ul Normal 4.0-11.[address] [facility] Comment on above: Performed By: #### C BC #### [facility] [address] [place], [place] [id number] Stef Isaura FREE T3on 05-19-2021 FREE T3 2.69 pg/mlL Critically low 2.77-5.27 [facility] Comment on above: Performed By: #### F T3, BMP, AST, ALT, TSH #### [facility] [address] [place], [place] [id number] Stefjesus Delarosa FREE T4on 05-19-2021 Free T4 [Mass/Vol] 0.99 ng/dL Normal 0.78-2.19 [facility] Comment on above: Performed By: #### F T4, PSASC #### [facility] [address] [place], [place] [id number] Stefjesus Turneren PROF CHEM 8 (BAS METB)on Anion gap [Moles/Vol] 13.1 mmol/L Normal [facility] Comment on above: Performed By: #### F T3, BMP, AST, ALT, TSH #### [facility] [address] [place], [place] [id number] Stefjesus Delarosa Calcium [Mass/Vol] 8.9 mg/dL Normal 8.4-10.2 [facility] Comment on above: Performed By: #### F T3, BMP, AST, ALT, TSH #### [facility] [address] [address] Stef Isaura Chloride [Moles/Vol] 107 mmol/L Normal 98-[address] [facility] Comment on above: Performed By: #### F T3, BMP, AST, ALT, TSH #### [facility] [address] [address] Stef Isaura CO2 [Moles/Vol] 27.6 mmol/L Normal 22.0-30.0 [facility] Comment on above: Performed By: #### F T3, BMP, AST, ALT, TSH #### [facility] [address] [address] Stef Isaura Creatinine [Mass/Vol] 1.36 mg/dL Critically high 0.66-1.[address] [facility] Comment on above: Performed By: #### F T3, BMP, AST, ALT, TSH #### [facility] [address] [place] [address] Stef Isaura EGFR-AF [place] >60 Normal >=60 [facility] Comment on above: Performed By: #### F T3, BMP, AST, ALT, TSH #### [facility] [address] [address] Stef Isaura EGFR-NON AF [place] 52 mL/min/1.73m2 Critically low >=[address] [facility] Comment on above: Performed By: #### F T3, BMP, AST, ALT, TSH #### [facility] [address] [address] Stef Isaura Glucose [Mass/Vol] 91 mg/dL Normal 74-106 [facility] Comment on above: Performed By: #### F T3, BMP, AST, ALT, TSH #### [facility] [address] [address] Stef Isaura Potassium [Moles/Vol] 4.7 mmol/L Normal 3.4-5.[address] [facility] Comment on above: Performed By: #### F T3, BMP, AST, ALT, TSH #### [facility] [address] [address] Stef Isaura Sodium [Moles/Vol] 143 mmol/L Normal 137-145 [facility] Comment on above: Performed By: #### F T3, BMP, AST, ALT, TSH #### [facility] [address] [place] [address] Stef Isaura Urea nitrogen [Mass/Vol] 21.0 mg/dL Critically high 9.0-20.0 [facility] Comment on above: Performed By: #### F T3, BMP, AST, ALT, TSH #### [facility] [address] [place] [address] Stef Isaura Urea nitrogen/Creatinine [Mass ratio] 15.4 mg/mg Normal [facility] Comment on above: Performed By: #### F T3, BMP, AST, ALT, TSH #### [facility] [address] [place] [address] Stefjesus Turneren SGOTon 05-19-2021 AST [Catalytic activity/Vol] 30 U/L Normal 17-59 [facility] Comment on above: Performed By: #### F T3, BMP, AST, ALT, TSH #### [facility] [address] [place] [address] Stef Isaura SGPTon 05-19-2021 ALT [Catalytic activity/Vol] 39 U/L Normal 21-72 [facility] Comment on above: Performed By: #### F T3, BMP, AST, ALT, TSH #### [facility] [address] [place] [address] Stef Isaura TSHon 05-19-2021 TSH 2.229 uIU/mL Normal 0.470-4.680 [facility] Comment on above: Performed By: #### F T3, BMP, AST, ALT, TSH #### [facility] [address] [place] [address] Stef Isaura TSH RANGE SEE BELOW Normal [facility] Comment on above: Result Comment: <0.3 4 UIU/ml HYPERTHYROID 0.34-5.60 UIU/ml EUTHYROID >5.60 UIU/ml HYPOTHYROID Performed By: #### F T3, BMP, AST, ALT, TSH #### [facility] [address] [place] [address] Stef Isaura Vital Signs Date Time Vital Sign Value Performing Clinician Omi pozo 04-13-2025 09:42-0400 Body height 193 cm Willie Hobbs MD Work Phone: [facility] 04-13-2025 09:42-0400 Body mass index (BMI) [Ratio] 35.06 kg/m2 Willie Hobbs MD Work Phone: [facility] 04-13-2025 09:42-0400 Body temperature 97.81 [degF] Willie Hobbs MD Work Phone: [facility] 04-13-2025 09:42-0400 Body weight 130.64 kg Willie Hobbs MD Work Phone: [facility] 04-13-2025 09:42-0400 Diastolic blood pressure 58 mm[Hg] Willie Hobbs MD Work Phone: [facility] 04-13-2025 09:42-0400 Heart rate 83 /min Willie Hobbs MD Work Phone: [facility] 04-13-2025 09:42-0400 Respiratory rate 18 /min Willie Hobbs MD Work Phone: [facility] 04-13-2025 09:42-0400 SaO2% (BldA) [Mass fraction] 97 % Willie Hobbs MD Work Phone: [facility] 04-13-2025 09:42-0400 Systolic blood pressure 112 mm[Hg] Willie Hobbs MD Work Phone: [facility] 12-06-2024 11:37-0500 Body height 193 cm Willie Hobbs MD Work Phone: [facility] 12-06-2024 11:37-0500 Body mass index (BMI) [Ratio] 35.79 kg/m2 Willie Hobbs MD Work Phone: [facility] 12-06-2024 11:37-0500 Body temperature 97.11 [degF] Willie Hobbs MD Work Phone: [facility] 12-06-2024 11:37-0500 Body weight 133.36 kg Willie Hobbs MD Work Phone: [facility] 12-06-2024 11:37-0500 Diastolic blood pressure 62 mm[Hg] Willie Hobbs MD Work Phone: [facility] 12-06-2024 11:37-0500 Heart rate 76 /min Willie Hobbs MD Work Phone: [facility] 12-06-2024 11:37-0500 Respiratory rate 20 /min Willie Hobbs MD Work Phone: [facility] 12-06-2024 11:37-0500 SaO2% (BldA) [Mass fraction] 97 % Willie Hobbs MD Work Phone: [facility] 12-06-2024 11:37-0500 Systolic blood pressure 108 mm[Hg] Willie Hobbs MD Work Phone: [facility] 10-13-2024 11:26-0500 Body height 193 cm Willie Hobbs MD Work Phone: [facility] 10-13-2024 11:26-0500 Body mass index (BMI) [Ratio] 35.06 kg/m2 Willie Hobbs MD Work Phone: [facility] 10-13-2024 11:26-0500 Body weight 130.64 kg Willie Hobbs MD Work Phone: [facility] 10-13-2024 11:26-0500 Diastolic blood pressure 58 mm[Hg] Willie Hobbs MD Work Phone: [facility] 10-13-2024 11:26-0500 Heart rate 72 /min Willie Hobbs MD Work Phone: [facility] 10-13-2024 11:26-0500 Respiratory rate 18 /min Willie Hobbs MD Work Phone: [facility] 10-13-2024 11:26-0500 SaO2% (BldA) [Mass fraction] 97 % Willie Hobbs MD Work Phone: [facility] 10-13-2024 11:26-0500 Systolic blood pressure 110 mm[Hg] Willie Hobbs MD Work Phone: [facility] Healthcare Encounters Encounter Date Encounter Type Care Provider Facility Start: 04-13-2025 End: 04-13-2025 Bamboo flowsheet Willie Hobbs MD Work Phone: [facility] Start: 04-13-2025 End: 04-13-2025 Bamboo flowsheet Willie Hobbs MD Work Phone: [facility] Start: 04-13-2025 End: 04-13-2025 Patient encounter procedure Willie Hobbs MD Work Phone: [facility] Healthcare Work Phone: Start: 04-13-2025 End: 04-13-2025 Postop follow up visit related to original px Willie Hobbs MD Work Phone: [facility] Comment on above: Medicare annual well ness visit, subsequent (Primary Dx); Prediabetes; Adult hypothyroidism ; Encounter for long-term current use of medication; Class 2 severe obesity due to excess calories with serious comorbidity and body mass index (BMI) of 35.0 to 35.9 in adult ([facility]) Start: 12-06-2024 End: 12-06-2024 [employer] Willie Hobbs MD Work Phone: [facility] Start: 12-06-2024 End: 12-06-2024 Bamboo flowsheet Willie Hobbs MD Work Phone: [facility] Start: 12-06-2024 End: 12-06-2024 Office outpatient visit 15 minutes Willie Hobbs MD Work Phone: [facility] Comment on above: Acute bronchitis due to other specified organisms (Primary Dx); Class 2 severe obesity due to excess calories with serious comorbidity and body mass index (BMI) of 35.0 to 35.9 in adult ([facility]); Prediabetes Start: 12-06-2024 End: 12-06-2024 ambulatory WILLIE HOBBS Not Available Start: 10-16-2024 End: 10-16-2024 [facility] Result Encounter Willie Hobbs MD Work Phone: [facility] Unsolic[facility] Start: 10-16-2024 End: 10-16-2024 [facility] Result Encounter Willie Hobbs MD Work Phone: [facility]olic[facility] Start: 10-13-2024 End: 10-13-2024 Bamboo flowsheet Willie Hobbs MD Work Phone: [facility] Start: 10-13-2024 End: 10-13-2024 Bamboo flowsheet Willie Hobbs MD Work Phone: [facility] Start: 10-13-2024 End: 10-13-2024 Office outpatient visit 15 minutes Willie Hobbs MD Work Phone: [facility] Comment on above: DDD (degenerative di sc disease), cervical (Primary Dx); Adult hypothyroidism (CMS/HCC); Lipid screening; Screening PSA (prostate specific antigen); Encounter for long-term current use of medication; Class 2 obesity due to excess calories without serious comorbidity with body mass index (BMI) of 35.0 to 35.9 in adult Start: 10-13-2024 End: 10-13-2024 ambulatory WILLIE HOBBS Not Available Start: 05-19-2021 End: 05-20-[address] WILLIE HOBBS Facility:[facility] Procedures Date Procedure Procedure Detail Performing Clinician Start: 10-16-2024 ALL CBC WITH AUTO DIFF Willie Hobbs MD Work Phone: Start: 05-19-[address] WILLIE DURAN Comment on above: Performed By: #### F T4, PSASC #### [facility] [address] [place] [address] Stef Delarosa Plan of Treatment Date Care Activity Detail Author Start: 04-15-2026 End: 04-15-2026 Patient encounter procedure 04/15/2026 8:15 AM EDT Office Visit [facility] [address] [place] [id number] Willie Hobbs MD [address] [place] [address] [facility] Start: 08-17-2025 Screening for malign ant neoplasm of colon [facility] Start: 06-25-2025 Influenza vaccination Influenz a Vaccine (Season Ended) [facility] Start: 04-13-2025 End: 04-13-2026 Basic metabolic 1998 panel - Serum or Plasma Basic metabolic panel Lab Routine Encounter for long-term current use of medication Expected: 04/13/2025 (Approximate), Expires: 04/13/2026 [facility] Comment on above: Expected: 04/13/2025 (Approximate), Expires: 04/13/2026 Start: 04-13-2025 End: 04-13-2026 Hemoglobin A1c/Hemoglobin.total in Blood Hemoglobin A1c Lab Routine Prediabetes Expected: 04/13/2025 (Approximate), Expires: 04/13/2026 [facility] Work Phone: Comment on above: Expected: 04/13/2025 (Approximate), Expires: 04/13/2026 Start: 04-13-2025 End: 04-13-2026 Thyrotropin [Units/volume] in Serum or Plasma TSH Lab Routine Adult hypothyroidism Expected: 04/13/2025 (Approximate), Expires: 04/13/2026 [facility] Comment on above: Expected: 04/13/2025 (Approximate), Expires: 04/13/2026 Start: 04-13-2025 End: 04-13-2026 Thyroxine (T4) free [Mass/volume] in Serum or Plasma T4, free Lab Routine Adult hypothyroidism Expected: 04/13/2025 (Approximate), Expires: 04/13/2026 [facility] Comment on above: Expected: 04/13/2025 (Approximate), Expires: 04/13/2026 Start: 04-13-2025 End: 04-13-2025 Patient encounter procedure [facility] Comment on above: Arrived Start: 04-11-2025 Screening for malign ant neoplasm of colon Colorectal Cancer Screening [facility] Comment on above: Postponed from 02/20 (Patient Refused) Start: 12-06-2024 End: 12-06-2024 Patient encounter procedure 12/06/2024 11:30 AM EST Office Visit [facility] [address] [place] [address] Willie Hobbs MD [address] [place] [phone] Arrived [facility] Comment on above: Arrived Start: 10-13-2024 End: 10-13-2025 Basic metabolic 1998 panel - Serum or Plasma Basic metabolic panel Lab Routine Encounter for long-term current use of medication Expected: 10/13/2024 (Approximate), Expires: 10/13/2025 [facility] Work Phone: Comment on above: Expected: 10/13/2024 (Approximate), Expires: 10/13/2025 Start: 10-13-2024 End: 10-13-2025 CBC W Auto Differential panel - Blood CBC and differential Lab Routine Encounter for long-term current use of medication Expected: 10/13/2024 (Approximate), Expires: 10/13/2025 [facility] Comment on above: Expected: 10/13/2024 (Approximate), Expires: 10/13/2025 Start: 10-13-2024 End: 10-13-2025 Hepatic function 2000 panel - Serum or Plasma Hepatic function panel Lab Routine Encounter for long-term current use of medication Expected: 10/13/2024 (Approximate), Expires: 10/13/2025 [facility] Comment on above: Expected: 10/13/2024 (Approximate), Expires: 10/13/2025 Start: 10-13-2024 End: 10-13-2025 Lipid 1996 panel - Serum or Plasma Lipid panel Lab Routine Lipid screening Expected: 10/13/2024 (Approximate), Expires: 10/13/2025 [facility] Comment on above: Expected: 10/13/2024 (Approximate), Expires: 10/13/2025 Start: 10-13-2024 End: 10-13-2025 Prostate specific Ag [Mass/volume] in Serum or Plasma PSA Lab Routine Screening PSA (prostate specific antigen) Expected: 10/13/2024 (Approximate), Expires: 10/13/2025 [facility] Comment on above: Expected: 10/13/2024 (Approximate), Expires: 10/13/2025 Start: 10-13-2024 End: 10-13-2025 Thyrotropin [Units/volume] in Serum or Plasma TSH Lab Routine Class 2 obesity due to excess calories without serious comorbidity with body mass index (BMI) of 35.0 to 35.9 in adult Expected: 10/13/2024 (Approximate), Expires: 10/13/2025 [facility] Comment on above: Expected: 10/13/2024 (Approximate), Expires: 10/13/2025 Start: 10-13-2024 End: 10-13-2024 Patient encounter procedure 10/13/2024 10:45 AM EST Office Visit [facility] [address] [place] [address] Willie Hobbs MD [address] [place] [address] [facility] on above: Arrived Start: 06-25-2024 Influenza vaccination Influenza Vacc ine (#1) [facility] Start: 2019 Pneumococcal Vaccine : 65+ Years (1 of 1 - PCV) Pneumococcal Vaccine: 65+ Years (1 of 1 - PCV) [facility] Start: 02-21-2004 Pneumococcal Vaccine : 65+ Years (1 of 1 - PCV) Pneumococcal Vaccine: 65+ Years (1 of 1 - PCV) [facility] Start: 1954 Medicare Annual Wellness (AWV) Medicare Annual Wellness (AWV) [facility] Start: 1954 Screening for malign ant neoplasm of colon [facility] Payers Date Payer Category Payer Medicare (Managed Care) YOVANA MALONE [id number] 1960 Unknown [id number] 1954 Unknown [id number] 1954 Unknown [id number] 1954 Unknown [id number] Social History Date Type Detail Facility Start: 10-13-2024 Tobacco smoking status IDIS Never sm oked tobacco [facility] Start: 10-13-2024 Tobacco use and exposure Smoke less tobacco non-user [facility] Start: 10-13-2024 End: 04-13-2025 [facility] Start: 10-13-2024 End: 04-13-2025 [id number] Health Literacy [facility] How often do you nee d to have someone help you when you read instructions, pamphlets, or other written material from your doctor or pharmacy [SILS] Never [facility] Do you belong to any clubs or organizations such as judaism groups, unions, fraternal or athletic groups, or [...] file [facility] 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 [facility] Functional Status Date Assessment Result Facility 04-13-2025 Patient Health Quest ionnaire 2 item (PHQ-2) [Reported] [facility] History of Present illness Narrative 04-13-2025 Willie Hobbs MD - 04/13/2025 10:10 AM EDAudrey Hobbs MD - 04/13/2025 10:09 AM Rosy Hobbs MD - 04/13/2025 9:45 AM EDT Note Date & Type Note Facility 04-13-2025 History of Presen t illness Narrative Associated Problem(s): Class 2 severe obesity due to excess calories with serious comorbidity and body mass index (BMI) of 35.0 to 35.9 in adult ([facility]) Weight loss indicated. Associated Problem(s): Medicare annual wellness visit, subsequent Due for labs. Discussed proper diet and regular aerobic exercise. Need aerobic exercise 5-6 days a week for 30 minutes at a time. Smaller portions and limit total calories. Yearly FOB checked through insurance. Tetanus every 10 years. Advised not to smoke. Images from the original note were not included. Subjective Patient ID: Omar Diez is a 70 y.o. male who presents for Medicare Annual Wellness Visit Subsequent (wellness). Presents for medicare annual wellness visit. Patient feels well today. Weight unchanged over the past year. 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 Not watching diet or trying to eat healthy. Not limiting portions or snacking. Due for labs. Review of Systems Constitutional: [...] There is no guarding or rebound. Musculoskeletal: General: Normal range of motion. Left lower leg: No edema. Neurological: General: No focal deficit present. Mental Status: He is alert. Cranial Nerves: No cranial nerve deficit. Deep Tendon Reflexes: Reflexes normal. Assessment/Plan Problem List Items Addressed This Visit Adult hypothyroidism Relevant Orders TSH T4, free Encounter for long-term current use of medication Relevant Orders Basic metabolic panel Prediabetes Relevant Orders Hemoglobin A1c Medicare annual wellness visit, subsequent - Primary Due for labs. Discussed proper diet and regular aerobic exercise. Need aerobic exercise 5-6 days a week for 30 minutes at a time. Smaller portions and limit total calories. Yearly FOB checked through insurance. Tetanus every 10 years. Advised not to smoke. documented in this encounter [facility] History of Present illness Narrative 12-06-2024 Willie Hobbs MD - 12/06/2024 11:50 AM Hunter Hobbs MD - 12/06/2024 11:50 AM Hunter Hobbs MD - 12/06/2024 11:49 AM Hunter Hobbs MD - 12/06/2024 11:30 AM EST Note Date & Type Note Facility 12-06-2024 History of Presen t illness Narrative Associated Problem(s): Prediabetes Will monitor labs. Associated Problem(s): Class 2 severe obesity due to excess calories with serious comorbidity and body mass index (BMI) of 35.0 to 35.9 in adult ([facility]) Weight loss indicated. Associated Problem(s): Acute bronchitis due to other specified organisms Take antibiotics for 7 days. Use prednisone for inflammation. Use sudafed or other decongestants as needed. Use Robitussin or Robitussin-DM for cough. Can use afrin for congestion but no longer than 3 days. Can use Mucinex to bring up phlegm. Use Motrin or Tylenol as needed for fever, aches, or pains. Increase fluid intake and rest. Should improve over next 5-7 days and if no better or worse call for re-evaluation. Images from the original note were not included. Subjective Patient ID: Omar Diez is a 69 y.o. male who presents for Follow-up (Cold ongoing for 1.5 weeks). C/o cough, congestion, and rhinorrhea x 2 weeks. Afebrile. Mild fatigue and run down. Frequent cough dry and nonproductive. Chest tight and mild SOB. Frequent coughing spells. CONTI and sinus pressure in forehead and cheeks along with postnasal drip. Ears plugged and popping. Sore throat and pain to swallow. Mild nausea. Denies recent sick contacts. Using OTC medication and mild relief. Started cefdinir 12/01. No improvement in symptoms since onset. Review of Systems Constitutional: Negative for fatigue. [...] Assessment/Plan Problem List Items Addressed This Visit Class 2 severe obesity due to excess calories with serious comorbidity and body mass index (BMI) of 35.0 to 35.9 in adult ([facility]) Weight loss indicated. Prediabetes Will monitor labs. Acute bronchitis due to other specified organisms - Primary Take antibiotics for 7 days. Use prednisone for inflammation. Use sudafed or other decongestants as needed. Use Robitussin or Robitussin-DM for cough. Can use afrin for congestion but no longer than 3 days. Can use Mucinex to bring up phlegm. Use Motrin or Tylenol as needed for fever, aches, or pains. Increase fluid intake and rest. Should improve over next 5-7 days and if no better or worse call for re-evaluation. Relevant Medications levoFLOXacin (Levaquin) 750 MG tablet predniSONE (Deltasone) 50 MG tablet benzonatate (Tessalon) 200 MG capsule documented in this encounter [facility] History of Present illness Narrative [...] adult documented in this encounter [facility] Evaluation [...] (BMI) of 35.0 to 35.9 in adult Acute bronchitis due to other specified organisms- Primary Class 2 severe obesity due to excess calories with serious comorbidity and body mass index (BMI) of 35.0 to 35.9 in adult (CMS/HCC) Prediabetes Other abnormal glucose documented in this encounter [facility] Evaluation note Note Date & Type Note Facility Evaluation note Diagnosis DDD (degenerative disc disease), cervical- Primary Degeneration of cervical intervertebral disc Adult hypothyroidism Unspecified hypothyroidism Lipid screening Screening for lipoid disorders Screening PSA (prostate specific antigen) Special screening for malignant neoplasm of prostate Encounter for long-term current use of medication Class 2 obesity due to excess calories without serious comorbidity with body mass index (BMI) of 35.0 to 35.9 in adult Acute bronchitis due to other specified organisms- Primary Class 2 severe obesity due to excess calories with serious comorbidity and body mass index (BMI) of 35.0 to 35.9 in adult ([facility]) Prediabetes Other abnormal glucose Medicare annual wellness visit, subsequent- Primary Prediabetes Other abnormal glucose Adult hypothyroidism Unspecified hypothyroidism Encounter for long-term current use of medication Class 2 severe obesity due to excess calories with serious comorbidity and body mass index (BMI) of 35.0 to 35.9 in adult ([facility]) documented in this encounter [facility] Summary Purpose Family History No Family History Records FoundNo Family History Records Found Advance Directives No Advanced Directives Records FoundNo Advanced Directives Records Found Additional Source Comments (unrecognized sect ion and content) No Status Records FoundNo Status Records Found INFORMATION SOURCE (unrecogn ized section and content) DATE CREATED AUTHOR 05/25/2021 [facility] DATE CREATED AUTHOR AUTHOR'S ORGANIZ ATION 12/08/2024 [facility] EPIC Reason for Visit (unrecogniz ed section and content) Reason Comments Follow-up Had neck pain flair, but doing better. Reason Comments Follow-up Cold ongoing for 1.5 weeks Reason Comments Medicare Annual Wellness Visit Subsequen t wellness Care Teams (unrecognized sec tion and content) [employer] Relationship Specialty Start Date End Date Willie Hobbs MD [address] [place] [phone] PCP - General Family Medicine 09/20/24 [employer] Relationship Specialty Start Date End Date Willie Hobbs MD [address] [place] [phone] PCP - General Family Medicine 09/20/24 [employer] Relationship Specialty Start Date End Date Willie Hobbs MD [address] [place] [phone] PCP - General Family Medicine 09/20/24 [employer] Relationship Specialty Start Date End Date Willie Hobbs MD [address] [place] [phone] PCP - [facility] 09/20/24 [employer] Relationship Specialty Start Date End Date Willie Hobbs MD [address] [place] [phone] PCP - [facility] 09/20/24 [employer] Relationship Specialty Start Date End Date Willie Hobbs MD [address] [place] [phone] [facility] 09/20/24 Willie Hobbs MD [address] [place] [phone] GELY Lamar MA 11/25/24 [employer] Relationship Specialty Start Date End Date Willie Hobbs MD [address] [place] [phone] [facility] 09/20/24 Willie Hobbs MD [address] [place] [phone] GELY Lamar MA 11/25/24 FOR RECORDS PERTAINING TO PATIENTS WHO ARE [...] BE BASED ON THE PRIMARY CLINICAL RECORDS. [facility] provides no warranty or guarantee of the accuracy or completeness of information in this document.
[2025-04-13 11:01] LABS: Estimated Average Glucose 114 mg/dL; Glycohemoglobin A1C 5.6 % (4.5-6.2)
[2025-04-13 11:18] LABS: Anion Gap 13.4; BUN Creatinine Ratio 18.5; Calcium 9.3 mg/dL (8.5-10.1); Carbon Dioxide 26.1 mmol/L (21.0-32.0); Chloride 106 mmol/L (98-107); Estimated GFR (African America >60 (>=60 mL/min/1.73m^2); Estimated GFR (Non-African Ame >60 (>=60 mL/min/1.73m^2); Glucose 99 mg/dL (74-106); Potassium 4.5 mmol/L (3.5-5.1); Sodium 141 mmol/L (136-145); Thyroid Stimulating Hormone 1.253 uIU/mL (0.358-3.740)
== END 2025-04-13 10:33 | disposition home or self-care (01) ==
LOC: LAB 10:35
PROVIDERS: PCP Family Medicine; Visit Provider Family Medicine
DX: R73.03 Prediabetes (principal); Z79.899 Other long term (current) drug therapy; E03.9 Hypothyroidism, unspecified
CPT/HCPCS: 36415; 80048; 83036; 84439; 84443